=== PATIENT | female | born 1965 | race Caucasian/White ===

== ENCOUNTER → 2016-07-26 | Outpatient (CLI) | payer OTHER ==
[~2016-07-26] MED LIST: ACYCLOVIR400 MG PO; FLONASE 0.05% N16 G1; LIPITOR20 MG PO; MELOXICAM15 MG PO; TIZANIDINE HCL4 M1 PO; ZYRTEC5 M2 PO
--- NOTE | ~2016-07-26 | MY7 ---
[facility] A Service of [facility] RADIOLOGY TEXT RESULTS PATIENT: ANGELES CHANDLER LOCATION: [facility] : 65 UNIT #: [id number] AGE: [address]: GLORIA SELLERS APRN SEX: F ORDER DR: [id number] [facility] [address] [place], [place] [address] [id number] O MR#: [id number] Acc #: [id number] NAME: ANGELES CHANDLER : 1965 SEX: F STUDY DATE/TIME: 07/26/2016 10:10 UNIT: [facility] ROOM: STUDY DESCRIPTION: MY Mammogram Dx Dig Lt Attending Physician: Gloria Sellers M.D. Ordering Physician: Gloria Sellers M.D. Primary Care Physician: Gloria Sellers M.D. MEDICAL IMAGING REPORT This report is preliminary unless electronic signature is present EXAM Right digital diagnostic mammogram INDICATIONS Followup left breast microcalcifications. PROCEDURE CC and MLO views of the left breast. Spot magnification views of the left breast in the CC and true lateral projections. Images obtained on a digital mammography unit. FDA-approved CAD device utilized. COMPARISON 01/25/2016 11/10/2014 07/28/2014 and 07/14/2013 FINDINGS Grouped microcalcifications in the upper outer quadrant of the left breast. These have amorphous morphology. They have been biopsied in the past with reported benign pathology. They not significantly changed dating back to 2013. IMPRESSION Benign left diagnostic mammogram. Recommend patient return to yearly screening. Patients over the age of 40 are entered into a reminder system with target due date for the next mammogram. A result letter will also be sent to the patient. BIRADS: 2 Benign finding. Dictated by... Jose J Mckeon M.D. THIS IS AN ELECTRONICALLY VERIFIED REPORT [facility] A Service of [facility] & [facility] RADIOLOGY TEXT RESULTS PATIENT: ANGELES CHANDLER LOCATION: [facility] : 65 UNIT #: [id number] AGE: [address]: GLORIA SELLERS APRN SEX: F ORDER DR: Jose J Mckeon M.D. at 07/26/2016 5:05 PM [place] TD: 07/26/2016 10:47 JOB #: [id number] MEDICAL IMAGING REPORT Page 1 of 1 COPY
== END | disposition home or self-care (01) ==
LOC: CMAM 09:29
DX: R92.8 Other abnormal and inconclusive findings on diagnostic imaging of breast (principal)
CPT/HCPCS: G0206